=== PATIENT | male | born 1950 | race Caucasian/White ===

== ENCOUNTER 2024-09-21 09:46 | Emergency (ER) | payer OTHER ==
[~2024-09-21] VITALS: Ht 177.8 cm; Wt 93.9 kg
[~2024-09-21 09:46] MED LIST: ASPI325 PO; CLOP75 PO; FISH OIL 1,0001 EAC1 PO; LISI5 PO; OMEP20ER PO; SIMV10 PO
[2024-09-21] MEDS ORDERED: Morphine Sulfate 4 MG/1 ML Injection IV ONE ×2 (10:15→12:35)
[2024-09-21] MEDS ORDERED: Aspir 8181 MG PO (11:19)
[2024-09-21] MEDS ORDERED: LORA10ER PO (11:20)
[2024-09-21 11:34] LABS: BASOPHILS ABSOLUTE AUTO 0.05 K/mm3 (0.00-0.23); BASOPHILS PERCENT AUTO 0 % (0-2); EOSINOPHILS ABSOLUTE AUTO 0.04 K/mm3 (0.00-0.68); EOSINOPHILS PERCENT AUTO 0 % (0-6); Hematocrit 49.6 % (37.0-53.0); Hemoglobin 16.8 g/dL (13.5-17.5); IMMATURE GRAN ABSOLUTE AUTO 0.06 K/mm3 (0.00-0.10); IMMATURE GRAN PERCENT AUTO 1 % (0-1); LYMPHOCYTES ABSOLUTE AUTO 0.73 K/mm3 (0.84-5.20); LYMPHOCYTES PERCENT AUTO 7 % (21-46); MONOCYTES ABSOLUTE AUTO 0.54 K/mm3 (0.16-1.47); MONOCYTES PERCENT AUTO 5 % (4-13); Mean Corpuscular HGB 29.3 pg (26.0-34.0); Mean Corpuscular HGB Conc 33.9 g/dL (31.5-36.5); Mean Corpuscular Volume 87 fL (80-100); Mean Platelet Volume 11.2 fL (9.1-12.4); NEUTROPHILS ABSOLUTE AUTO 9.78 K/mm3 (1.96-9.15); NEUTROPHILS PERCENT AUTO 87 % (41-73); Platelet Count 101 K/mm3 (150-400); RDW Coefficient Variation 12.7 % (11.7-14.2); RDW Standard Deviation 40.1 fL (35.1-46.3); Red Blood Cell Count 5.73 M/mm3 (4.30-5.90)
[2024-09-21 11:53] LABS: Albumin, Blood 4.2 g/dL (3.4-5.0); Bilirubin, Total 0.8 mg/dL (0.1-1.0); Bun/Creatinine Ratio 21.4 (12.0-20.0); Calcium, Blood 9.7 mg/dL (8.5-10.1); Creatinine, Blood 0.65 mg/dL (0.60-1.20); Globulin, Blood 4.1 g/dL (2.2-4.0); Potassium, Blood 3.6 mmol/L (3.5-5.5); Total Protein, Blood 8.3 g/dL (6.4-8.2)
[2024-09-21] MEDS ORDERED: MetroNIDAZOLE 500 MG Tab PO ONE (14:10)
[2024-09-21] MEDS ORDERED: Amoxicillin/Clavulanate K 875 MG Tab PO ONE (14:10)
[2024-09-21 14:27] VITALS: BP 160/89
[2024-09-21] MEDS ORDERED: ONDA4ODT MM (14:37)
[2024-09-21] MEDS ORDERED: AMOCLA875 PO (14:37)
[2024-09-21] MEDS ORDERED: HYDROCODONE-AC1 EA10 PO (14:37)
[2024-09-21] MEDS ORDERED: Flagyl500 MG PO (14:37)
[2024-09-22] MEDS ORDERED: AMOCLA875 PO ×2 (08:36→08:54)
[2024-09-22] MEDS ORDERED: ONDA4ODT MM ×2 (08:36→08:54)
[2024-09-22] MEDS ORDERED: Flagyl500 MG PO ×2 (08:36→08:54)
[2024-09-22] MEDS ORDERED: HYDROCODONE-AC1 EA10 PO ×2 (08:36→08:54)
== END 2024-09-21 14:50 | disposition home or self-care (01) ==
LOC: ER 09:46
PROVIDERS: Emergency Medicine
DX: K52.9 Noninfective gastroenteritis and colitis, unspecified (principal); E78.5 Hyperlipidemia, unspecified; I10 Essential (primary) hypertension; K21.9 Gastro-esophageal reflux disease without esophagitis; I25.2 Old myocardial infarction; Z87.891 Personal history of nicotine dependence; Z79.82 Long term (current) use of aspirin; Z79.02 Long term (current) use of antithrombotics/antiplatelets; Z79.899 Other long term (current) drug therapy
CPT/HCPCS: 74177; 80053; 83690; 85025; 96374-59; 99285-25; A9270; J2270; Q9967